=== PATIENT | female | born 1940 | race African-American/Black ===

== ENCOUNTER → 2017-01-21 | Outpatient (CLI) | payer OTHER ==
[~2017-01-21] MED LIST: AMLODIPINE BESY10 MG PO; ASPIR 8181 MG PO; AZOPT OPHTH1 %/10 M1 OPHTHALMIC; COLACE100 MG PO; DOXYCYCLINE 10100 MG PO; DUONEB 2.5-0.5 M3 ML INH; ENOXAPARIN30 MG/0.1 SUBQ; FENTANYL PA50 MCG/HR TRANSDERM; GABAPENTIN 100100 MG PO; GLUMETZA500 PO; HYDRO TP; KLOR-CON 1010 MEQ PO; LASIX 20 MG TAB20 MG PO; LEVAQUIN 250 M250 MG PO; LISINOPRIL30 MG PO; NORCO 5-325 TA1 EACH PO; NORTRIPTYLINE H25 M3 GT; OXYCODONE HCL 55 MG PO; OXYCODONE HCL15 MG PO; PREDNISONE 10 M10 MG PO; PROBIOTIC WITH1 EACH; REGLAN 10 MG TA10 MG PO; SENOKOT-S1 TA1 PO; SLOW-MAG64 MG PO; TRAVATAN Z2.5 ML OPHTHALMIC; TRIAMTERENE/HCT1 CA1 PO
== END ==
LOC: HYPER 07:14
DX: S31.609A Unspecified open wound of abdominal wall, unspecified quadrant with penetration into peritoneal cavity, initial encounter (principal); R21 Rash and other nonspecific skin eruption; E11.36 Type 2 diabetes mellitus with diabetic cataract; E11.39 Type 2 diabetes mellitus with other diabetic ophthalmic complication; H40.9 Unspecified glaucoma; I10 Essential (primary) hypertension; M19.90 Unspecified osteoarthritis, unspecified site; K21.9 Gastro-esophageal reflux disease without esophagitis; G30.9 Alzheimer's disease, unspecified; F02.80 Dementia in other diseases classified elsewhere, unspecified severity, without behavioral disturbance, psychotic disturbance, mood disturbance, and anxiety; F17.210 Nicotine dependence, cigarettes, uncomplicated; Z85.118 Personal history of other malignant neoplasm of bronchus and lung; X58.XXXA Exposure to other specified factors, initial encounter; Y93.89 Activity, other specified; Y92.89 Other specified places as the place of occurrence of the external cause; Y99.8 Other external cause status

== ENCOUNTER 2017-05-30 20:27 | Inpatient (IN) | payer OTHER ==
[~2017-05-30] VITALS: Ht 152.4 cm; Wt 70.6 kg
--- NOTE | ~2017-05-30 | EKG ---
[address] [place] [address] ELECTROCARDIOGRAM REPORT Name: RAFA CASILLAS Room #: 247-P ADM IN M.R.#: [id number] Admission: 05/30/17 Attend Phys: Ralph Ramirez DO Discharge: Date of : 42 Report #: [id number] THIS REPORT FOR: //name// [facility] ED Test Date: 2017-05-30 Test Time: 20:46:33 Pat Name: RAFA CASILLAS Department: Room: [facility] Gender: F Teacher Of The Sight Impaired: KHARI : 1940 Requested By: Aron Bell Order Number: [id number] MD: Dwight Chester Measurements Intervals [place] Rate: 134 P: 34 MD: 132 QRS: 4 QRSD: 87 T: 45 QT: 317 QTc: 474 Interpretive Statements Sinus tachycardia Nonspecific ST segment abnormality Compared to ECG 05/30/2016 06:58:48 Heart rate has increased Electronically Signed On 05-31-2017 8:18:42 CDT by Dwight Chester [email or web address] <ELECTRONICALLY SIGNED> By: Dwight Chester MD, [facility] 05/31/17 08 45 45 Dwight Chester MD, FAC /EPI
--- NOTE | ~2017-05-30 | EKG ---
[address] [address] ELECTROCARDIOGRAM REPORT Name: RAFA CASILLAS Room #: 247-P ADM IN M.R.#: [id number] Admission: 05/30/17 Attend Phys: Ralph Ramirez DO Discharge: Date of : 42 Report #: [id number] THIS REPORT FOR: //name// [facility] Test Date: 2017-06-03 Test Time: 08:40:38 Pat Name: RAFA CASILLAS Department: Room: [facility] Gender: F Director Pediatric: alexandra : 1940 Requested By: Aundrea Velasquez Order Number: [id number] MD: Walker Doyle Measurements Intervals [place] Rate: 97 P: 51 NE: 144 QRS: -15 QRSD: 91 T: 59 QT: 346 QTc: 440 Interpretive Statements Sinus rhythm Borderline left axis deviation Compared to ECG 05/30/2017 20:46:33 Sinus tachycardia no longer present ST (T wave) deviation no longer present Electronically Signed On 06-03-2017 14:06:29 CDT by Walker Doyle [email or web address] <ELECTRONICALLY SIGNED> By: Walker Doyle MD 06/03/17 1409 9 Walker Doyle MD /EPI
--- NOTE | ~2017-05-30 | HC ---
[facility] [address] [place] [address] CONSULTATION Name: RAFA TAVERAS Room #: [facility]- ADM IN M.R.#: [id number] Admission: 05/30/17 Attend Phys: Ralph Ramirez DO Discharge: Date of : 42 Report #: [id number] THIS REPORT FOR: //name// CC: Lesa Tai DATE OF SERVICE: 06/01/2017 CONSULTATION: Infectious diseases. HISTORY OF PRESENT ILLNESS: Ms Taveras is a 77-year-old -[place] female, who presented to the Emergency Room last night complaining of weakness and confusion. The daughter noted that she was somewhat short of breath for the last 3 days. This was a marked deterioration from her baseline status. She notes that 5 days ago, she actually went to [place] [employer] [place], was awake, alert and participating in the crowd. Overnight in the hospital, the patient became more obtunded, developed fever and shortness of breath, requiring a BiPAP ventilator. Blood cultures x 2 are now showing gram-positive cocci in clusters. In this setting, the patient was diagnosed with sepsis, transferred to the ICU and infectious disease consultation was requested. PAST MEDICAL HISTORY: Relevant for a cancer of the lung. I do not know what type. The patient has been on oral chemotherapy with Tarceva for approximately 6 months. The daughter reports that the tumor is showing shrinkage on this regimen. In spite of the patient's age and diagnosis, the family requests there should be full resuscitation and ventilation if necessary. OTHER DIAGNOSES: Include diabetes, hypertension, chronic low back pain, deep vein thrombosis requiring antiplatelet treatment with Eliquis. THE PATIENT ONLY HAS ALLERGIES NOTED TO MORPHINE. MEDICATION RECONCILIATION: Current medication regimen includes lorazepam 1 mg q. 4 IV p.r.n., albuterol aerosol 2.5 mg, Cefazolin 1 gram every 8 hours, oxycodone 15 mg q. 4 p.r.n., pantoprazole 80 mg, fentanyl 25 mcg q. 3 p.r.n, insulin, glucose, dextrose per sliding scale, ondansetron 4 mg IV q. 4 p.r.n., Tylenol 650 mg q. p.o. p.r.n., norepinephrine drip, p.r.n., saline, furosemide 40 mg one time dose. FAMILY HISTORY: Noncontributory. SOCIAL HISTORY: The patient is unmarried. Her daughter is present and appears very supportive. The patient smoked in the distant past, but quit many years ago. REVIEW OF SYSTEMS: Unavailable, as the patient is very obtunded, on a CPAP [address] [place] [address] CONSULTATION Name: RAFA TAVERAS Room #: 247-P [facility] IN M.R.#: [id number] Admission: 05/30/17 Attend Phys: Ralph Ramirez DO Discharge: Date of : 42 Report #: [id number] ventilator. PHYSICAL EXAMINATION: GENERAL: The patient appears critically ill, but not uncomfortable nor in distress. VITAL SIGNS: Show the temperature has gone up suddenly to 101.6 axillary. Blood pressure 106/50, pulse 133, and respirations gone from 21-44. SKIN: Shows no significant rash, lesion or exanthem. There are a few minor erosions under the panus. There is no cellulitis or significant deep wounds. ENT: Shows some temporal wasting. Mental status is depressed. NECK: Supple. LUNGS: Sounds are diminished with a few scattered wheezes, no coughing. The patient is on the ventilator. HEART: Sounds were difficult to appreciate, but were grossly normal with a regular rate and rhythm. ABDOMEN: Belly was obese, soft and not tender without mass, no organomegaly. EXTREMITIES: Showed no cyanosis or edema. LABORATORY DATA: The white count is 15.3, hemoglobin in the ER was 6.1 and after 2 units of blood it was up to 9.4 with hematocrit 30%, and platelets 269,000. The iron was very low at 17. The MCV was low at 68.3. Chemistries; sodium 136, potassium 3.6, chloride 105, bicarbonate 19, BUN 33, and creatinine 1.6. Troponin was elevated at 0.06. Liver function tests were normal. Blood gas showed acidosis at 7.33 pH in spite of a respiratory overdrive with pCO2 of 34 and pO2 was 101. The blood gas lactate was 1.15, the FIO2 was 60% plus 5 liters with a PEEP of 10, pressure support of 16. The chest x-ray has a right lower lobe infiltrate. Follow up radiographs show increased infiltrate. Nasal for MRSA was negative. Blood cultures x 2 are growing gram-positive cocci in clusters. In summary, we have a 77-year-old patient with lung cancer, on chemotherapy. She presents with GI bleeding, iron deficiency and hemorrhage anemia, then becomes febrile and was found to have positive blood cultures for what looks like Staph. I would like to obtain two follow up blood cultures. We will change the antibiotic from Cefazolin to vancomycin initially 1.5 gram load and 1.25 gram q. 24 hours. We will need to follow CBC and electrolytes carefully. If the creatinine goes up to vancomycin, notes may require an adjustment. If the patient becomes intubated, we would obtain sputum for culture, although at this time, there really is no cough or expectorated sputum. We can now follow the lactate as well as the pH, CBC and chemistries. [facility] [address] [place] [address] CONSULTATION Name: RAFA TVAERAS Room #: 247-P ADM IN M.R.#: [id number] Admission: 05/30/17 Attend Phys: Ralph Ramirez DO Discharge: Date of : 42 Report #: [id number] I appreciate the opportunity to offer input in the care of this complex patient. Thank you for requesting infectious disease input. <ELECTRONICALLY SIGNED> By: Mervin Nicole MD 06/02/17 2324 1114 [id number] Mervin Nicole MD /nt
--- NOTE | ~2017-05-30 | HC ---
[facility] [address] [place] [address] CONSULTATION Name: RAFA CASILLAS Room #: [facility]- ADM IN M.R.#: [id number] Admission: 05/30/17 Attend Phys: Ralph Ramirez DO Discharge: Date of : 42 Report #: [id number] THIS REPORT FOR: //name// CC: Lesa Tai PRIMARY CARE PHYSICIAN: Unknown. ONCOLOGIST: Chet More MD REFERRING PHYSICIAN: Ralph Ramirez DO HISTORY OF PRESENT ILLNESS: The patient is a 77-year-old -[place]i female who was admitted on 05/30/2017, with weakness. She was found to be anemic. She was given transfusions. Overnight, she has developed progressive hypoxia. A pulmonary consultation was requested. The patient is currently on BiPAP. She is not able to provide much history. She is semi-obtunded. The daughter was present who was able to give some history. The patient was diagnosed with lung cancer in 2014. She underwent treatment. Few months ago, she was found to have recurrence of lung cancer. This was involving the right lung. The patient is currently undergoing chemotherapy with Tarceva. Daughter knows that the patient has lost about 60 pounds over the past several months. She has been getting generalized weak, generalized debility along with weakness. She has chronic back pain. She was in her usual state of health until about 3 days ago when the patient started to complain of weakness, mild cough and dyspnea. When she was seen in the emergency room, her hemoglobin was 6.1. She was given transfusions yesterday. Initial chest x-ray on admission shows elevated right hemidiaphragm, infiltrates seen in the right lung field, mild interstitial changes also seen in the left lung field, surgical clips are seen in the right mid lung field. Today's chest x-ray shows increase in bilateral pulmonary infiltrates what appears to airspace infiltrates, increased bowel gas pattern is also noted below the diaphragm. A CT chest, abdomen and pelvis was performed. This revealed a right mid lung field lung mass involving the right upper lobe, [id number] pleural effusion, and bilateral adrenal myelolipomas. PAST MEDICAL HISTORY: As mentioned above, recurrence of lung cancer noted few [facility] [address] [place] [address] CONSULTATION Name: RAFA CASILLAS Room #: 247-P [facility] IN [facility].#: [id number] Admission: 05/30/17 Attend Phys: Ralph Ramirez DO Discharge: Date of : 42 Report #: [id number] months ago. The patient is felt to have stage IV lung cancer, diabetes mellitus type 2, hypertension, chronic back pain, glaucoma, neuropathy, and history of DVT, on anticoagulation. PAST SURGICAL HISTORY: Knee replacement surgery, prior back surgery times 3, herniorrhaphy, and hysterectomy. ALLERGIES: MORPHINE and NONSTEROIDALS, reactions unspecified. HOME MEDICATIONS: Include lisinopril, nortriptyline, Neurontin, metformin, Eliquis, Tarceva. FAMILY HISTORY: Noncontributory. SOCIAL HISTORY: The patient has smoked, but quit some time ago. There is no alcohol history. She currently lives with her daughter. REVIEW OF SYSTEMS: Deferred as the patient is not able to provide adequate history. PHYSICAL EXAMINATION: GENERAL: She appears to be mildly distressed, on BiPAP, not very responsive. VITAL SIGNS: Temperature is 98.5 degrees Fahrenheit, pulse is 117, respiratory rate is 44, blood pressure 100/50 mmHg, and saturation is 93%. HEENT: Normocephalic, atraumatic. NECK: Supple, without lymphadenopathy or thyromegaly. CHEST: Breath sounds are coarse bilaterally, decreased in the right base. CARDIOVASCULAR: Heart sounds are distant. No obvious murmurs or gallop. Pulses are 2+/4+ bilaterally. BREASTS: Exam is deferred. ABDOMEN: Soft, nontender. No organomegaly or masses felt. GENITOURINARY: Deferred. RECTAL: Deferred. EXTREMITIES: There is no cyanosis, clubbing, edema. LABORATORY AND DIAGNOSTIC DATA: CT chest and chest x-ray as mentioned above. Sodium 136, potassium 3.6, chloride 105, CO2 of 19, BUN is 33, creatinine is 1.6. Previous baseline creatinine appears to be normal. Arterial blood gas this morning revealed pH 7.33, pCO2 of 34, pO2 of 100 on FiO2 of 60%. Hemoglobin is 9.4 yesterday. WBC 15,300. Platelets are normal. Albumin 2.1. IMPRESSION: 1. Acute hypoxic respiratory failure in this 77-year-old -[place] female with history of recurrent lung cancer. Chest x-ray now shows increased bilateral pulmonary edema. Volume overload is suspected due to the recent transfusion. Pneumonia cannot be ruled out. [address] [address] CONSULTATION Name: RAFA CASILLAS Room #: [facility]- ADM IN M.R.#: [id number] Admission: 05/30/17 Attend Phys: Ralph Ramirez DO Discharge: Date of : 42 Report #: [id number] 2. Lung cancer initially diagnosed around 2014, now with recurrence, felt to be in stage IV, currently undergoing Tarceva therapy. CT chest shows right upper lobe lung mass with what appears to be chronic right-sided pleural effusion. 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 3. Anemia. She has had trouble with anemia recently. She was hospitalized in [facility]. She has undergone workup there. In fact, she was recently hospitalized a few weeks ago in [facility]. She is being transfused currently. Hemoglobin was 9 yesterday. Today's hemoglobin is pending. She has been on anticoagulation for deep venous thrombosis. This has been on hold. GI has been consulted for evaluation. Other considerations of bleeding may be retroperitoneal bleed, etc. 4. Acute kidney injury with creatinine of 1.7 with hyponatremia, hypokalemia, and metabolic acidosis. 5. Metabolic acidosis, probably related to acute kidney injury and severe sepsis. 6. The patient was hypotensive on admission, which suggests hypoperfusion is the likely cause. 7. Chronic back pain, on narcotics. 8. Hypertension. 9. Diabetes mellitus. The patient will be transferred back to the ICU for ongoing management. We will continue noninvasive positive pressure ventilation. The patient may need intubation if not improved. We would also try a dose of Lasix, I realize the patient is hypotensive, given significant hypoxia. Agree with broad-spectrum antibiotics. However, if chest x-ray clears and cultures are negative, antibiotics can be discontinued. The patient is also encephalopathic, likely due to acute hypoxia, perhaps severe sepsis. These will be monitored closely. Lastly, discussed in detail with the patient's daughter. Given that the patient has recurrent lung cancer, felt to be stage IV, overall prognosis felt to be poor. We discussed medical directive. The patient does not have one. She will discuss with the rest of the family and let us know their decisions. Thank you for this consultation. <ELECTRONICALLY SIGNED> By: Juan Daniel Wagner MD 06/03/17 1209 [id number] [id number] Juan Daniel Wagner MD /nt
[2017-05-30 20:28] VITALS: BP 76/50
[2017-05-30] MEDS ORDERED: ELIQUIS2.5 MG PO (21:05)
[2017-05-30] MEDS ORDERED: TARCEVA150 MG PO (21:06)
[2017-05-30 21:35] LABS: MCH 21.6 pg (26.0-34.0); MCHC 31.6 g/dL (28.0-37.0); MCV 68.3 fL (80.0-100.0); PLATELET COUNT 280 thou/uL (150-400); RBC 2.83 mil/uL (4.20-5.00); WBC 12.1 thou/uL (4.0-11.0)
[2017-05-30 21:40] LABS: MANUAL DIFF YES
[2017-05-30 21:41] LABS: HEMATOCRIT 19.3 % (37.0-47.0); HEMOGLOBIN 6.1 gm/dL (12.0-15.0)
[2017-05-30 21:44] LABS: URINE BILIRUBIN NEGATIVE (Negative); URINE BLOOD NEGATIVE (Negative); URINE COLOR YELLOW; URINE GLUCOSE-RANDOM* NEGATIVE (Negative); URINE KETONES NEGATIVE (Negative); URINE LEUKOCYTES-REFLEX NEGATIVE (Negative); URINE PROTEIN (DIPSTICK) NEGATIVE (Negative); URINE SPECIFIC GRAVITY 1.025 (1.003-1.035); URINE UROBILINOGEN 0.2 E.U./dl (0.2-1.0)
[2017-05-30 21:45] LABS: CALCIUM 6.9 mg/dL (8.5-10.1); CREATININE 1.7 mg/dL (0.6-1.0); POTASSIUM 3.6 mmol/L (3.5-5.1)
[2017-05-30 21:54] LABS: ALBUMIN 2.1 g/dL (3.4-5.0); TOTAL BILIRUBIN 0.5 mg/dL (<0.1-1.0); TOTAL PROTEIN 6.2 g/dL (6.4-8.2); TROPONIN-I 0.06 ng/mL (<0.04-0.07)
[2017-05-30 22:08] LABS: ABSOLUTE NEUTROPHILS 10.8 thou/uL (1.4-8.2); ANISOCYTOSIS 4+; HYPOCHROMASIA 1+; MACROCYTES 1+; MICROCYTES 2+; OVALOCYTES OCCASIONAL; POIKILOCYTOSIS 1+; POLYCHROMASIA OCCASIONAL; TARGET CELLS OCCASIONAL; TOTAL CELL COUNT 100
[2017-05-30 22:09] LABS: LARGE PLATELETS RARE
[2017-05-30 23:06] LABS: % SATURATION 6 % (20-39); IRON 17 ug/dL (50-170); TIBC 277 ug/dL (250-450); UIBC 260 ug/dL
[2017-05-30 23:31] VITALS: BP 81/45
[2017-05-30 23:45] VITALS: BP 74/48
[2017-05-31] VITALS (59 sets, daily range): BP systolic 71–208; BP diastolic 45–183
[2017-05-31 04:49] LABS: HEMATOCRIT 30.2 % (37.0-47.0); MCH 22.7 pg (26.0-34.0); MCHC 30.9 g/dL (28.0-37.0); RBC 4.13 mil/uL (4.20-5.00); RDW 25.9 % (10.5-14.5); WBC 15.3 thou/uL (4.0-11.0)
[2017-05-31 04:56] LABS: CALCIUM 7.1 mg/dL (8.5-10.1); CREATININE 1.6 mg/dL (0.6-1.0); POTASSIUM 3.6 mmol/L (3.5-5.1)
[2017-05-31 05:04] LABS: HEMOGLOBIN 9.4 gm/dL (12.0-15.0); MCV 73.3 fL (80.0-100.0)
[2017-05-31 06:25] LABS: FOLIC ACID 19.3 ng/mL (8.6-58.9)
[2017-06-01] VITALS (19 sets, daily range): BP systolic 93–145; BP diastolic 50–97
[2017-06-01 02:17] LABS: ABG SAMPLE TYPE ARTERIAL; LACTATE 1.63 mmol/L (0.5-2.0); PCO2 34.6 mmHg (35.0-45.0); pH 7.335 (7.360-7.450); sO2 83.4 % (92.0-98.0); tCO2 19.1 mmol/L (24.0-30.0)
[2017-06-01 02:18] LABS: PO2 49.9 mmHg (80.0-100.0)
[2017-06-01 02:20] LABS: STICK SITE L.RADIAL
[2017-06-01 08:37] LABS: ABG SAMPLE TYPE ARTERIAL; BE(vivo) -7.3 mmol/L (-2 to +3); HCO3 17.8 mmol/L (22.0-26.0); LACTATE 1.15 mmol/L (0.5-2.0); O2(CT) 13.6 mL/dL (15.0-23.0); O2Hb 96.2 % (92.0-98.0); PCO2 34.5 mmHg (35.0-45.0); pH 7.331 (7.360-7.450); sO2 97.3 % (92.0-98.0); tCO2 18.9 mmol/L (24.0-30.0)
[2017-06-01 08:38] LABS: STICK SITE L.RADIAL
[2017-06-01 08:39] LABS: ABG COMMENT NO COMPLICATIONS; Pressure Support 16 cm H20
[2017-06-01 12:45] LABS: HEMATOCRIT 27.8 % (37.0-47.0); HEMOGLOBIN 8.8 gm/dL (12.0-15.0); MCHC 31.7 g/dL (28.0-37.0); MCV 72.5 fL (80.0-100.0); PLATELET COUNT 259 thou/uL (150-400); RBC 3.83 mil/uL (4.20-5.00); RDW 25.2 % (10.5-14.5)
[2017-06-01 12:47] LABS: MANUAL DIFF YES
[2017-06-01 12:51] LABS: URINE BILIRUBIN NEGATIVE (Negative); URINE BLOOD 1+ (Negative); URINE COLOR YELLOW; URINE GLUCOSE-RANDOM* NEGATIVE (Negative); URINE KETONES NEGATIVE (Negative); URINE LEUKOCYTES-REFLEX NEGATIVE (Negative); URINE PROTEIN (DIPSTICK) NEGATIVE (Negative); URINE UROBILINOGEN 0.2 E.U./dl (0.2-1.0)
[2017-06-01 12:59] LABS: CALCIUM 8.4 mg/dL (8.5-10.1); CREATININE 0.8 mg/dL (0.6-1.0)
[2017-06-01 13:03] LABS: POTASSIUM 2.9 mmol/L (3.5-5.1)
[2017-06-01 13:05] LABS: APTT 30.5 Seconds (24.5-32.8); INR 1.3; PROTIME 13.4 Seconds (9.3-11.4)
[2017-06-01 13:06] LABS: ALBUMIN 2.4 g/dL (3.4-5.0); TOTAL BILIRUBIN 0.4 mg/dL (<0.1-1.0); TOTAL PROTEIN 7.5 g/dL (6.4-8.2)
[2017-06-01 13:11] LABS: FIBRINOGEN 439.6 mg/dL (210-360)
[2017-06-01 13:19] LABS: CASTS None Seen /LPF (None Seen); CRYSTALS None Seen /LPF (None Seen); HYALINE CASTS 0-3 Few /LPF (None Seen); SQUAMOUS None Seen /LPF (0-3); URINE RBC 0-2 Rare /HPF (0-2)
[2017-06-01 13:20] LABS: FINE GRANULAR CASTS 0-3 Few /LPF (None Seen); URINE WBC-REFLEX None Seen /HPF (0-5)
[2017-06-01 13:31] LABS: ABG SAMPLE TYPE ARTERIAL; BE(vivo) -6.7 mmol/L (-2 to +3); HCO3 17.5 mmol/L (22.0-26.0); LACTATE 1.03 mmol/L (0.5-2.0); O2Hb 93.5 % (92.0-98.0); PCO2 30.7 mmHg (35.0-45.0); PO2 73.4 mmHg (80.0-100.0); pH 7.375 (7.360-7.450); sO2 94.7 % (92.0-98.0); tCO2 18.5 mmol/L (24.0-30.0)
[2017-06-01 13:32] LABS: ABG COMMENT BIPAP 16/8; STICK SITE L.RADIAL
[2017-06-01 13:44] LABS: ABSOLUTE NEUTROPHILS 11.2 thou/uL (1.4-8.2); ANISOCYTOSIS 3+; MACROCYTES 2+; MICROCYTES 1+; POLYCHROMASIA 2+; TOTAL CELL COUNT 100
[2017-06-01 13:45] LABS: HYPOCHROMASIA 1+
[2017-06-01 13:48] LABS: OVALOCYTES OCCASIONAL
[2017-06-01 17:02] LABS: CALCIUM 8.1 mg/dL (8.5-10.1); CREATININE 0.7 mg/dL (0.6-1.0); POTASSIUM 3.4 mmol/L (3.5-5.1)
[2017-06-01 17:08] LABS: APTT 32.9 Seconds (24.5-32.8); FIBRINOGEN 474.8 mg/dL (210-360); INR 1.4
[2017-06-01 20:34] LABS: CALCIUM 8.6 mg/dL (8.5-10.1); CREATININE 0.7 mg/dL (0.6-1.0); POTASSIUM 3.8 mmol/L (3.5-5.1)
[2017-06-01 20:40] LABS: INR 1.3; PROTIME 13.4 Seconds (9.3-11.4)
[2017-06-01 20:45] LABS: FIBRINOGEN 457.3 mg/dL (210-360)
[2017-06-02] VITALS (12 sets, daily range): BP systolic 116–155; BP diastolic 65–110
[2017-06-02 05:41] LABS: ABG SAMPLE TYPE ARTERIAL; HCO3 24.9 mmol/L (22.0-26.0); LACTATE 1.14 mmol/L (0.5-2.0); O2(CT) 13.6 mL/dL (15.0-23.0); O2Hb 90.3 % (92.0-98.0); PCO2 52.7 mmHg (35.0-45.0); PO2 67.5 mmHg (80.0-100.0); sO2 91.2 % (92.0-98.0); tCO2 26.5 mmol/L (24.0-30.0)
[2017-06-02 05:42] LABS: STICK SITE L.RADIAL; pH 7.292 (7.360-7.450)
[2017-06-02 05:43] LABS: ABG COMMENT BIPAP 16/8; Pressure Support 8 cm H20; TIDAL VOLUME 450 ml
[2017-06-02 05:44] LABS: MCV 73.1 fL (80.0-100.0); PLATELET COUNT 246 thou/uL (150-400); RBC 3.96 mil/uL (4.20-5.00)
[2017-06-02 05:45] LABS: HEMATOCRIT 28.9 % (37.0-47.0); MCH 22.8 pg (26.0-34.0); MCHC 31.2 g/dL (28.0-37.0); RDW 25.9 % (10.5-14.5); WBC 11.7 thou/uL (4.0-11.0)
[2017-06-02 05:54] LABS: ALBUMIN 2.3 g/dL (3.4-5.0); CALCIUM 9.2 mg/dL (8.5-10.1); CREATININE 0.7 mg/dL (0.6-1.0); POTASSIUM 3.7 mmol/L (3.5-5.1); TOTAL BILIRUBIN 0.3 mg/dL (<0.1-1.0); TOTAL PROTEIN 7.6 g/dL (6.4-8.2)
[2017-06-02 06:10] LABS: MANUAL DIFF YES
[2017-06-02 10:26] LABS: ABSOLUTE NEUTROPHILS 10.9 thou/uL (1.4-8.2); ANISOCYTOSIS 3+; HYPOCHROMASIA 2+; MICROCYTES 1+; POLYCHROMASIA SLIGHT; TOTAL CELL COUNT 100
[2017-06-03 05:33] LABS: HEMATOCRIT 30.2 % (37.0-47.0); HEMOGLOBIN 9.4 gm/dL (12.0-15.0); MCH 22.8 pg (26.0-34.0); MCV 73.4 fL (80.0-100.0); RBC 4.12 mil/uL (4.20-5.00); RDW 25.9 % (10.5-14.5); WBC 14.2 thou/uL (4.0-11.0)
[2017-06-03 05:52] LABS: CALCIUM 9.7 mg/dL (8.5-10.1); CREATININE 0.7 mg/dL (0.6-1.0); POTASSIUM 3.3 mmol/L (3.5-5.1)
[2017-06-03 06:34] LABS: ABG SAMPLE TYPE ARTERIAL; BE(vivo) -1.6 mmol/L (-2 to +3); FIO2 60 %; HCO3 22.9 mmol/L (22.0-26.0); LACTATE 1.68 mmol/L (0.5-2.0); O2(CT) 13.5 mL/dL (15.0-23.0); O2Hb 92.2 % (92.0-98.0); PCO2 37.7 mmHg (35.0-45.0); PO2 64.9 mmHg (80.0-100.0); STICK SITE L.RADIAL; pH 7.402 (7.360-7.450); sO2 92.9 % (92.0-98.0); tCO2 24.1 mmol/L (24.0-30.0)
[2017-06-03 06:37] LABS: Pressure Support 16 cm H20
[2017-06-03 11:06] LABS: ABG SAMPLE TYPE ARTERIAL; BE(vivo) 3.3 mmol/L (-2 to +3); HCO3 26.8 mmol/L (22.0-26.0); LACTATE 2.85 mmol/L (0.5-2.0); O2(CT) 13.8 mL/dL (15.0-23.0); O2Hb 91.8 % (92.0-98.0); PCO2 36.7 mmHg (35.0-45.0); PO2 58.2 mmHg (80.0-100.0); pH 7.481 (7.360-7.450); sO2 92.2 % (92.0-98.0); tCO2 27.9 mmol/L (24.0-30.0)
[2017-06-03 11:07] LABS: STICK SITE L.RADIAL
[2017-06-04] VITALS (14 sets, daily range): BP systolic 124–188; BP diastolic 71–129
[2017-06-04 05:42] LABS: HEMOGLOBIN 9.8 gm/dL (12.0-15.0); MCH 22.3 pg (26.0-34.0); MCHC 30.7 g/dL (28.0-37.0); MCV 72.8 fL (80.0-100.0); RBC 4.39 mil/uL (4.20-5.00); RDW 27.1 % (10.5-14.5)
[2017-06-04 05:53] LABS: CALCIUM 9.1 mg/dL (8.5-10.1); CREATININE 0.8 mg/dL (0.6-1.0); POTASSIUM 3.7 mmol/L (3.5-5.1)
== END 2017-06-04 21:15 | DRG 871 ==
LOC: ER 20:27 → EROBS 22:55 → ICU 22:55 → 4W 05-31 17:26 → ICU 06-01 11:29
PROVIDERS: Family Medicine; Internal Medicine Infectious Disease; Internal Medicine Pulmonary Disease; Nurse Practitioner Family; Physician Assistant
PROC: 30233N1 Transfusion of Nonautologous Red Blood Cells into Peripheral Vein, Percutaneous Approach (ICD-10-PCS; principal; 2017-05-30)
PROC: 0DJ07ZZ Inspection of Upper Intestinal Tract, Via Natural or Artificial Opening (ICD-10-PCS; 2017-05-31)
PROC: 5A09457 Assistance with Respiratory Ventilation, 24-96 Consecutive Hours, Continuous Positive Airway Pressure (ICD-10-PCS; 2017-06-01)
PROC: 02HV33Z Insertion of Infusion Device into Superior Vena Cava, Percutaneous Approach (ICD-10-PCS; 2017-06-01)
DX: A41.9 Sepsis, unspecified organism (principal); J18.9 Pneumonia, unspecified organism; J96.01 Acute respiratory failure with hypoxia; G92 Toxic encephalopathy; K92.2 Gastrointestinal hemorrhage, unspecified; N17.9 Acute kidney failure, unspecified; C34.91 Malignant neoplasm of unspecified part of right bronchus or lung; E87.1 Hypo-osmolality and hyponatremia; E87.2 Acidosis; E46 Unspecified protein-calorie malnutrition; J91.0 Malignant pleural effusion; J95.84 Transfusion-related acute lung injury (TRALI); I10 Essential (primary) hypertension; E11.39 Type 2 diabetes mellitus with other diabetic ophthalmic complication; H40.9 Unspecified glaucoma; E11.40 Type 2 diabetes mellitus with diabetic neuropathy, unspecified; Z96.659 Presence of unspecified artificial knee joint; I95.9 Hypotension, unspecified; E87.6 Hypokalemia; M54.5 Low back pain; G89.4 Chronic pain syndrome; E86.1 Hypovolemia; J98.6 Disorders of diaphragm; T40.695A Adverse effect of other narcotics, initial encounter; D50.0 Iron deficiency anemia secondary to blood loss (chronic); Z51.5 Encounter for palliative care; Z66 Do not resuscitate; Y84.8 Other medical procedures as the cause of abnormal reaction of the patient, or of later complication, without mention of misadventure at the time of the procedure; Y92.238 Other place in hospital as the place of occurrence of the external cause; Z90.710 Acquired absence of both cervix and uterus; Z79.899 Other long term (current) drug therapy; Z79.84 Long term (current) use of oral hypoglycemic drugs; Z88.6 Allergy status to analgesic agent; Z88.8 Allergy status to other drugs, medicaments and biological substances; Z87.891 Personal history of nicotine dependence; Z86.718 Personal history of other venous thrombosis and embolism; Z68.30 Body mass index [BMI] 30.0-30.9, adult; Z78.1 Physical restraint status
CPT/HCPCS: 10045; 10203